=== PATIENT | male | born 1960 | race African-American/Black ===

== ENCOUNTER 2021-01-03 12:45 | Emergency (ER) | payer OTHER, SELFPAY ==
[2021-01-03 13:05] VITALS: BP 133/76; PULSE 79; RESP 18; TEMP 36.7; O2SAT 100
--- NOTE | 2021-01-03 15:37 | ED.GENADULT ---
HPI - General Adult General Chief complaint: Extremity Problem,Nontraumatic <ELVIN Acosta Last Filed: 01/03/21 15:41> Stated complaint: shoulder pain <ELVIN Acosta Last Filed: 01/03/21 15:41> Time Seen by Provider: 01/03/21 14:31 <ELVIN Acosta Last Filed: 01/03/21 15:41> Source: patient and RN notes reviewed <ELVIN Acosta Last Filed: 01/03/21 15:41> Mode of arrival: ambulatory <ELVIN Acosta Last Filed: 01/03/21 15:41> Limitations: no limitations <ELVIN Acosta Last Filed: 01/03/21 15:41> History of Present Illness HPI narrative: Patient is a 60-year-old male who woke up with left neck and shoulder pain this morning noting aching pain from the left paraspinal cervical musculature down into the trapezius musculature and shoulder denies injury trauma or similar occurrence has not taken anything for his symptoms notes that the pain is worse with activity and movement <ELVIN Acosta Last Filed: 01/03/21 15:41> Related Data Allergies/adverse reactions: Allergies Allergy/AdvReac Type Severity Reaction Status Date / Time No Known Allergies Allergy Verified 01/03/21 13:08 <ELVIN Acosta Last Filed: 01/03/21 15:41> Review of Systems Review of Systems: All systems reviewed & are unremarkable except as noted in HPI and below <ELVIN Acosta Last Filed: 01/03/21 15:41> Exam Narrative: GENERAL: Well-appearing, well-nourished, and in no acute distress. HEAD: Normocephalic, atraumatic. EYES: PERRLA and EOMI. ENT: Nares clear, no rhinorrhea or epistaxis. Mucous membranes moist. NECK: Supple. No adenopathy or masses. No carotid bruits or JVD CHEST: Clear to auscultation. No respiratory distress. No wheezes rales or rhonchi HEART: Regular rate and rhythm. No murmur heard. Normal peripheral pulses. EXTREMITIES: Normal range of motion. No edema. Tenderness of the left paraspinal cervical musculature trapezius musculature and shoulder musculature no deformities noted SKIN: Warm, dry, no rash. NEURO: No focal deficits. Alert and oriented x3. Cranial nerves II through XII grossly intact. Normal speech and gait. Neurovascularly intact. Capillary refill less than 2 seconds PSYCH: Normal mood and affect. <Stepan Khalil PA-C - Last Filed: 01/03/21 15:41> Course Course Emergency Course: Patient in the room in no distress aware of case findings treatment plan and diagnosis agreeing to follow-up as instructed given reasons to return ABCs and vital signs intact will be treated as a muscle strain patient agrees with this treatment plan <ELVIN Acosta Last Filed: 01/03/21 15:41> Vital Signs Vital signs: Vital Signs Temperature 98.0 F 01/03/21 13:05 Pulse Rate 79 01/03/21 13:05 Respiratory Rate 18 01/03/21 13:05 Blood Pressure 133/76 01/03/21 13:05 Pulse Oximetry 100 01/03/21 13:05 Temperature 98.0 F 01/03/21 13:05 Pulse Rate 73 01/03/21 15:53 Respiratory Rate 16 01/03/21 15:53 Blood Pressure 126/95 H 01/03/21 15:53 Pulse Oximetry 98 01/03/21 15:53 <ELVIN Acosta Last Filed: 01/03/21 15:41> Medical Decision Making MDM Narrative Medical decision making narrative: Patients injury or pain is consistent with musculoskeletal etiology. No signs of neurological or vascular compromise on exam. Compartments and tisues are soft without signs of compartment syndrome. Pain is felt appropriate for further evaluation on an outpatient basis. <Stepan Khalil PA-C - Last Filed: 01/03/21 15:41> Vital Signs Vital Signs: Vital Signs Temperature 98.0 F 01/03/21 13:05 Pulse Rate 79 01/03/21 13:05 Respiratory Rate 18 01/03/21 13:05 Blood Pressure 133/76 01/03/21 13:05 Pulse Oximetry 100 01/03/21 13:05 Temperature 98.0 F 01/03/21 13:05 Pulse Rate 73 01/03/21 15:53 Respiratory Rate 16
[2021-01-03 15:53] VITALS: BP 126/95; PULSE 73; RESP 16; O2SAT 98
== END 2021-01-03 15:56 | disposition home or self-care (01) ==
PROVIDERS: Emergency Provider General Practice
DX: S16.1XXA Strain of muscle, fascia and tendon at neck level, initial encounter (principal); X58.XXXA Exposure to other specified factors, initial encounter
CPT/HCPCS: 99283